=== PATIENT | male | born 1950 | race Caucasian/White ===

== ENCOUNTER 2021-07-23 07:35 | Outpatient (CLI) | payer MEDICARE | END 2021-07-23 07:36 | disposition home or self-care (01) | LOC: CSHCP 07:35 | PROVIDERS: ATTEND Internal Medicine Pulmonary Disease | DX: R06.00 Dyspnea, unspecified (principal); R94.2 Abnormal results of pulmonary function studies | CPT/HCPCS: 94060; 94726; 94729; 94760 ==

== ENCOUNTER 2022-03-19 12:34 | Outpatient (CLI) | payer MEDICARE | END 2022-03-19 12:35 | disposition home or self-care (01) | LOC: CSHSPEC 12:34 | PROVIDERS: ATTEND Anesthesiology Pain Medicine | DX: M48.062 Spinal stenosis, lumbar region with neurogenic claudication (principal); Z95.0 Presence of cardiac pacemaker; M47.816 Spondylosis without myelopathy or radiculopathy, lumbar region; Z87.828 Personal history of other (healed) physical injury and trauma | CPT/HCPCS: 71045; 72148 ==